=== PATIENT | male | born 1945 | race Caucasian/White ===

== ENCOUNTER 2017-01-22 07:28 | Outpatient (CLI) | payer MEDICARE ==
[2017-01-22 09:27] LABS: #Basophils 0.1 thou/uL (0.0-0.2); #Eosinphils 0.3 thou/uL (0.0-0.7); #Lymphocytes 1.1 thou/uL (1.20-3.40); #Monocytes 0.5 thou/uL (0.11-0.59); #Neutrophils 3.4 thou/uL (1.40-6.50); %Basophils 1.2 % (0.0-1.0); %Eosinophils 4.9 % (0.0-10.0); %Lymphocytes 20.8 % (21.0-51.0); %Monocytes 8.5 % (0.0-10.0); Hematocrit 30.2 % (42.0-52.0); Mean Platelet Volume 10.4 fL (7.4-10.4); Red Blood Cell (RBC) Count 3.65 mill/uL (4.70-6.10); White Blood Cell (WBC) Count 5.3 thou/uL (4.8-10.8)
[2017-01-22 09:38] LABS: ALT (SGPT) 21 U/L (0-55); AST (SGOT) 16 U/L (5-34); Alkaline Phosphatase 71 U/L (40-150); Anion Gap 15 mmol/L (10-20); BUN (Urea Nitrogen) 36 mg/dL (8.4-25.7); Bilirubin, Total 0.6 mg/dL (0.2-1.2); Calc. Creatinine Clearance 0 mL/min (70-130); Calcium 8.9 mg/dL (7.8-10.44); Carbon Dioxide 28 mmol/L (23-31); Chloride 101 mmol/L (98-107); Estimated GFR-MDRD 58; Globulin 3.1 g/dL (2.4-3.5); LDL Cholesterol, Calculated 44 mg/dL; Protein, Total 6.2 g/dL (5.8-8.1)
[2017-01-22 09:43] LABS: Hemoglobin A1c 7.6 % (4.0-6.0)
== END 2017-01-22 07:29 | disposition home or self-care (01) ==
LOC: NAV LABSP 07:28
PROVIDERS: ATTEND Family Medicine
DX: Z12.5 Encounter for screening for malignant neoplasm of prostate (principal)
CPT/HCPCS: 36415; 80053; 80061; 83036; 85025; G0103

== ENCOUNTER 2017-01-24 10:11 | Outpatient (CLI) | payer MEDICARE ==
[2017-01-24 11:37] LABS: #Basophils 0.1 thou/uL (0.0-0.2); #Eosinphils 0.2 thou/uL (0.0-0.7); #Lymphocytes 0.8 thou/uL (1.20-3.40); #Monocytes 0.4 thou/uL (0.11-0.59); #Neutrophils 3.2 thou/uL (1.40-6.50); %Basophils 1.2 % (0.0-1.0); %Eosinophils 4.3 % (0.0-10.0); %Lymphocytes 17.4 % (21.0-51.0); %Monocytes 8.8 % (0.0-10.0); Hematocrit 31.6 % (42.0-52.0); Red Blood Cell (RBC) Count 3.85 mill/uL (4.70-6.10); White Blood Cell (WBC) Count 4.7 thou/uL (4.8-10.8)
[2017-01-24 11:53] LABS: ALT (SGPT) 22 U/L (0-55); AST (SGOT) 19 U/L (5-34); Alkaline Phosphatase 73 U/L (40-150); Anion Gap 14 mmol/L (10-20); BUN (Urea Nitrogen) 28 mg/dL (8.4-25.7); Bilirubin, Total 0.6 mg/dL (0.2-1.2); Calc. Creatinine Clearance 0 mL/min (70-130); Calcium 8.8 mg/dL (7.8-10.44); Carbon Dioxide 28 mmol/L (23-31); Chloride 101 mmol/L (98-107); Estimated GFR-MDRD 69; Globulin 3.3 g/dL (2.4-3.5); Protein, Total 6.6 g/dL (5.8-8.1)
[2017-01-24 12:21] LABS: Hemoglobin A1c 7.4 % (4.0-6.0)
== END 2017-01-24 10:12 | disposition home or self-care (01) ==
LOC: NAV LABSP 10:11
PROVIDERS: ATTEND Family Medicine
DX: E78.5 Hyperlipidemia, unspecified (principal); I63.9 Cerebral infarction, unspecified; E11.21 Type 2 diabetes mellitus with diabetic nephropathy
CPT/HCPCS: 36415; 80053; 83036; 84153; 85025

== ENCOUNTER 2017-08-11 01:47 | Emergency (ER) | payer MEDICARE ==
[2017-08-11 02:29] LABS: #Basophils 0.1 thou/uL (0.0-0.2); #Eosinphils 0.3 thou/uL (0.0-0.7); #Lymphocytes 1.3 thou/uL (1.20-3.40); #Monocytes 1.2 thou/uL (0.11-0.59); %Basophils 1.1 % (0.0-1.0); %Eosinophils 2.9 % (0.0-10.0); %Lymphocytes 11.6 % (21.0-51.0); %Monocytes 10.6 % (0.0-10.0); %Neutrophils 73.9 % (42.0-75.0); Mean Corpuscular HGB CONC 34.2 g/dL (32.0-36.0); Mean Corpuscular Hemoglobin 27.1 pg (27.0-31.0); Mean Corpuscular Volume 79.3 fl (80.0-94.0); Mean Platelet Volume 10.4 fL (7.4-10.4); Platelet Count 173 thou/uL (130-400); RBC Distribution Width 12.4 % (11.5-14.5); Red Blood Cell (RBC) Count 4.43 mill/uL (4.70-6.10); White Blood Cell (WBC) Count 10.9 thou/uL (4.8-10.8)
[2017-08-11] MEDS ORDERED: cefTRIAXone\\ROCEPHIN 1 GM VIAL ONE (02:31)
[2017-08-11] MEDS ORDERED: Sodium Chloride 0.9% 100 ML ONE (02:31)
[2017-08-11 02:51] LABS: ALT (SGPT) 21 U/L (8-55); AST (SGOT) 16 U/L (5-34); Albumin 3.8 g/dL (3.4-4.8); Alkaline Phosphatase 59 U/L (40-150); Anion Gap 14 mmol/L (10-20); BUN (Urea Nitrogen) 25 mg/dL (8.4-25.7); Bilirubin, Total 0.4 mg/dL (0.2-1.2); Calc. Creatinine Clearance 0 mL/min (70-130); Calcium 9.2 mg/dL (7.8-10.44); Carbon Dioxide 27 mmol/L (23-31); Chloride 104 mmol/L (98-107); Estimated GFR-MDRD 53; Globulin 3.3 g/dL (2.4-3.5); Glucose 127 mg/dL (83-110); Potassium 3.6 mmol/L (3.5-5.1); Protein, Total 7.1 g/dL (5.8-8.1); Sodium 141 mmol/L (136-145)
[2017-08-11] MEDS ORDERED: Vancomycin HCl 750 MG in Sodium Chloride 0.9% 250 ML 250 ML IVPB SCH (03:30)
--- NOTE | 2017-08-11 08:35 | RAD ---
PORTABLE CHEST: 08/11/2017 PROVIDED CLINICAL HISTORY: Cough. COMPARISON: 12/20/2014 FINDINGS: The cardiac silhouette appears enlarged, which may be at least partially on the basis of the portabl e technique. The lungs are hypoinflated but grossly clear. No lobar consolidation, pleural fluid, or pneumothorax apparent. IMPRESSION: No definite evidence for an acute cardiopulmonary process. Please correlate with subsequently perfo rmed chest CT. POS: OFF
== END 2017-08-11 04:35 | disposition short-term general hospital (02) ==
LOC: NAV ERS 01:47
DX: J84.9 Interstitial pulmonary disease, unspecified (principal); Z79.899 Other long term (current) drug therapy; E11.9 Type 2 diabetes mellitus without complications; E78.5 Hyperlipidemia, unspecified; I10 Essential (primary) hypertension; Z86.73 Personal history of transient ischemic attack (TIA), and cerebral infarction without residual deficits
CPT/HCPCS: 36415; 71010; 80053; 83605; 83880; 84145; 85025; 87040; 87149; 94640; 94760; 96365; J0696; J3370; J7050; J7620

== ENCOUNTER 2017-08-22 08:02 | Outpatient (CLI) | payer MEDICARE ==
[2017-08-22 08:35] LABS: Anion Gap 13 mmol/L (10-20); BUN (Urea Nitrogen) 28 mg/dL (8.4-25.7); Calc. Creatinine Clearance 0 mL/min (70-130); Calcium 8.7 mg/dL (7.8-10.44); Carbon Dioxide 31 mmol/L (23-31); Chloride 102 mmol/L (98-107); Estimated GFR-MDRD 61; Glucose 185 mg/dL (83-110); Magnesium 2.2 mg/dL (1.6-2.6); Potassium 3.5 mmol/L (3.5-5.1); Sodium 142 mmol/L (136-145)
== END 2017-08-22 08:03 | disposition home or self-care (01) ==
LOC: NAV LABSP 08:02
PROVIDERS: ATTEND Family Medicine
DX: F01.51 Vascular dementia, unspecified severity, with behavioral disturbance (principal); I10 Essential (primary) hypertension
CPT/HCPCS: 36415; 80048; 83735

== ENCOUNTER 2017-10-22 22:53 | Emergency (ER) | payer MEDICARE | END 2017-10-22 23:29 | LOC: NAV ERS 22:53 | DX: Z43.1 Encounter for attention to gastrostomy (principal); I63.9 Cerebral infarction, unspecified; E11.9 Type 2 diabetes mellitus without complications; E78.5 Hyperlipidemia, unspecified; I10 Essential (primary) hypertension; F32.9 Major depressive disorder, single episode, unspecified; Z79.899 Other long term (current) drug therapy; Z79.84 Long term (current) use of oral hypoglycemic drugs | CPT/HCPCS: 99284 ==